=== PATIENT | female | born 1960 | race Caucasian/White ===

== ENCOUNTER 2019-02-05 14:42 | Inpatient (IN) | payer BC ==
[~2019-02-05] VITALS: Ht 162.6 cm; Wt 90.8 kg
[2019-02-05] MEDS ORDERED: ACETAMINOPHEN WITH CODEINE 300/30MG TABLET PO ONE (15:15)
[2019-02-05 15:29] LABS: CLARITY URINE CLOUDY (CLEAR); COLOR URINE YELLOW (YELLOW); KETONES URINE 2+ (NEGATIVE); LEUKOCYTE ESTERASE URINE NEGATIVE (NEGATIVE); NITRITE URINE NEGATIVE (NEGATIVE); OCCULT BLOOD URINE TRACE (NEGATIVE); PROTEIN URINE NEGATIVE (NEGATIVE); SPECIFIC GRAVITY URINE 1.028 (1.005-1.030); UROBILINOGEN URINE 0.2 E.U./dL (0.2-1.0)
[2019-02-05] MEDS ORDERED: MORPHINE SULFATE 4 MG/ML CPJ (NOT FOR IM USE) IV ONE ×2 (16:00→18:00)
[2019-02-05 16:25] LABS: HEMATOCRIT. 43.1 % (36.0-48.0); HEMOGLOBIN. 14.5 g/dL (12.0-16.0); MEAN CORPUSCULAR HEMOGLOBIN 30.9 pg (28.0-32.0); MEAN CORPUSCULAR VOLUME 91.8 fL (81.0-99.0); MEAN PLATELET VOLUME 8.7 fl (7.4-10.4); PLATELET 478 x1000/uL (130-400); RED CELL DISTRIBUTION WIDTH 17.7 % (11.6-14.6)
[2019-02-05 16:29] LABS: CHLORIDE 103 mEq/L (98-107)
[2019-02-05 16:52] LABS: PLATELET ESTIMATE INCREASED
[2019-02-05] MEDS ORDERED: METRONIDAZOLE 500 MG PREMIX 100 ML IV ONE (18:00)
[2019-02-05] MEDS ORDERED: LEVOFLOXACIN 750MG PREMIX 150 ML IV ONE (18:00)
[2019-02-05] MEDS ORDERED: ACETAMINOPHEN 325MG TABLET PO PRN (20:45)
[2019-02-05] MEDS: METRONIDAZOLE 500 MG PREMIX 100 ML IV SCH (20:45)
[2019-02-05] MEDS ORDERED: ONDANSETRON HCL 4MG/2ML INJ IV PRN (20:45)
[2019-02-05] MEDS ORDERED: LORAZEPAM 0.5MG TABLET PO PRN (20:45)
[2019-02-05] MEDS ORDERED: DOCUSATE SODIUM 100MG CAPSULE PO PRN (20:45)
[2019-02-05] MEDS ORDERED: IPRATROPIUM/ALBUTEROL 0.5-3(2.5)MG/3ML NEB INH PRN (20:45)
[2019-02-05] MEDS ORDERED: CEFTRIAXONE 1 G PREMIX 50 ML IV SCH (20:45)
[2019-02-05] MEDS ORDERED: CLONIDINE 0.1MG TABLET PO PRN (20:45)
[2019-02-05] MEDS: MORPHINE SULFATE 2 MG/ML CPJ (NOT FOR IM USE) IV PRN (21:24)
[2019-02-05 21:28] VITALS: BP 152/83
[2019-02-05 22:00] VITALS: BP 151/83
[2019-02-06] VITALS: BP 151/73
[2019-02-06] MEDS: HYDROCODONE/ACETAMINOPHEN 5/325MG TABLET PO PRN ×5 (00:12→20:36)
[2019-02-06] MEDS: MORPHINE SULFATE 2 MG/ML CPJ (NOT FOR IM USE) IV PRN ×5 (01:28→18:13)
[2019-02-06 04:00] VITALS: BP 151/77
[2019-02-06] MEDS: METRONIDAZOLE 500 MG PREMIX 100 ML IV SCH ×3 (04:45→21:24)
[2019-02-06] MEDS: SODIUM CHLORIDE 0.9% 1,000 ML IV SCH ×3 (04:46→21:23)
[2019-02-06 07:33] LABS: CHLORIDE 101 mEq/L (98-107)
[2019-02-06 07:38] LABS: HEMATOCRIT. 39.2 % (36.0-48.0); HEMOGLOBIN. 13.2 g/dL (12.0-16.0); MEAN PLATELET VOLUME 8.4 fl (7.4-10.4); PLATELET 313 x1000/uL (130-400); RED BLOOD CELL COUNT 4.26 mill/uL (4.2-5.4)
[2019-02-06 07:40] LABS: LDL CHOLESTEROL 66 mg/dL (5-100)
[2019-02-06 07:41] LABS: HDL CHOLESTEROL 57 mg/dL (40-59)
[2019-02-06 08:00] VITALS: BP 169/93
[2019-02-06 08:30] LABS: *AMPHETAMINES SCREEN URINE NEGATIVE (NEGATIVE)
[2019-02-06 08:31] LABS: *BARBITURATES SCREEN URINE NEGATIVE (NEGATIVE); *BENZODIAZEPINES SCREEN URINE NEGATIVE (NEGATIVE); *COCAINE SCREEN URINE NEGATIVE (NEGATIVE); METHADONE URINE SCREEN NEGATIVE (NEGATIVE); OPIATES URINE SCREEN NEGATIVE (NEGATIVE); PHENCYCLIDINE URINE SCREEN NEGATIVE (NEGATIVE)
[2019-02-06 08:33] LABS: CANNABINOID URINE SCREEN NEGATIVE (NEGATIVE)
[2019-02-06 11:44] VITALS: BP 157/94
[2019-02-06 16:00] VITALS: BP 140/84
[2019-02-06 16:39] LABS: UCG SCREEN NEGATIVE
[2019-02-06] MEDS: LEVOFLOXACIN 500MG PREMIX 100 ML IV SCH (17:37)
[2019-02-06 20:00] VITALS: BP 125/79
[2019-02-06 22:44] LABS: PLATELET ESTIMATE NORMAL
[2019-02-07] VITALS: BP 115/75
[2019-02-07] MEDS: MORPHINE SULFATE 2 MG/ML CPJ (NOT FOR IM USE) IV PRN ×4 (00:18→17:43)
[2019-02-07 04:00] VITALS: BP 122/69
[2019-02-07] MEDS: HYDROCODONE/ACETAMINOPHEN 5/325MG TABLET PO PRN ×3 (04:41→21:03)
[2019-02-07] MEDS: METRONIDAZOLE 500 MG PREMIX 100 ML IV SCH ×3 (05:12→21:02)
[2019-02-07 07:45] LABS: HEMATOCRIT. 39.2 % (36.0-48.0); HEMOGLOBIN. 13.2 g/dL (12.0-16.0); MEAN CORPUSCULAR HEMOGLOBIN 31.1 pg (28.0-32.0); MEAN CORPUSCULAR VOLUME 92.1 fL (81.0-99.0); MEAN PLATELET VOLUME 8.8 fl (7.4-10.4); PLATELET 215 x1000/uL (130-400); RED BLOOD CELL COUNT 4.25 mill/uL (4.2-5.4); RED CELL DISTRIBUTION WIDTH 17.1 % (11.6-14.6)
[2019-02-07 07:48] LABS: CHLORIDE 100 mEq/L (98-107)
[2019-02-07 08:00] VITALS: BP 107/75
[2019-02-07 12:00] VITALS: BP_SYST 118; BP_SYST 130; BP_DIAS 74; BP_DIAS 76
[2019-02-07 13:38] LABS: PLATELET ESTIMATE NORMAL
[2019-02-07 16:00] VITALS: BP 130/74
[2019-02-07] MEDS: LEVOFLOXACIN 500MG PREMIX 100 ML IV SCH (17:43)
[2019-02-07] MEDS: SODIUM CHLORIDE 0.9% 1,000 ML IV SCH (17:44)
[2019-02-07 20:00] VITALS: BP 110/62
[2019-02-08] VITALS: BP_SYST 123; BP_SYST 98; BP_DIAS 61; BP_DIAS 73
[2019-02-08] MEDS: SODIUM CHLORIDE 0.9% 1,000 ML IV SCH (03:54)
[2019-02-08 04:00] VITALS: BP 115/68
[2019-02-08] MEDS: METRONIDAZOLE 500 MG PREMIX 100 ML IV SCH (05:23)
[2019-02-08] MEDS: HYDROCODONE/ACETAMINOPHEN 5/325MG TABLET PO PRN (05:28)
[2019-02-08 06:37] LABS: BASOPHILS % 0.2 % (0.0-2.0); EOSINOPHILS % 0.3 % (0.0-5.0); HEMATOCRIT. 37.2 % (36.0-48.0); HEMOGLOBIN. 12.8 g/dL (12.0-16.0); LYMPHOCYTES % 7.6 % (20.0-50.0); MEAN CORPUSCULAR HEMOGLOBIN 31.5 pg (28.0-32.0); MEAN CORPUSCULAR VOLUME 91.5 fL (81.0-99.0); MEAN PLATELET VOLUME 8.7 fl (7.4-10.4); MONOCYTES % 7.8 % (2.0-8.0); NEUTROPHILS % 84.1 % (40.0-76.0); PLATELET 217 x1000/uL (130-400); RED BLOOD CELL COUNT 4.06 mill/uL (4.2-5.4); RED CELL DISTRIBUTION WIDTH 17.1 % (11.6-14.6)
[2019-02-08 06:39] LABS: CHLORIDE 103 mEq/L (98-107)
[2019-02-08 08:00] VITALS: BP 102/64
[2019-02-08 12:00] VITALS: BP 107/71
[2019-02-08 12:33] VITALS: BP 107/71
== END 2019-02-08 13:40 | disposition home or self-care (01) | DRG 872 ==
LOC: ER 14:42 → ENRESERV 20:32 → 6EST 02-06 00:05
PROVIDERS: ADMIT Internal Medicine; ATTEND Internal Medicine
DX: A41.9 Sepsis, unspecified organism (principal); K57.32 Diverticulitis of large intestine without perforation or abscess without bleeding; R74.0 Nonspecific elevation of levels of transaminase and lactic acid dehydrogenase [LDH]; K76.0 Fatty (change of) liver, not elsewhere classified; K80.20 Calculus of gallbladder without cholecystitis without obstruction; I10 Essential (primary) hypertension; E66.9 Obesity, unspecified; K57.30 Diverticulosis of large intestine without perforation or abscess without bleeding; Z60.2 Problems related to living alone; Z71.3 Dietary counseling and surveillance; Z68.34 Body mass index [BMI] 34.0-34.9, adult; Z88.0 Allergy status to penicillin; Z98.891 History of uterine scar from previous surgery
CPT/HCPCS: 36415; 74176; 76700; 80048; 80061; 80305; 81025; 83036; 84443; 96365; 96375; 99285; J1956; J2270; J2405; J3490